=== PATIENT | male | born 1980 | race Hispanic/Latino ===

== ENCOUNTER 2021-11-07 08:46 | Emergency (ER) | payer OTHER ==
[2021-11-07] MEDS ORDERED: Fluorescein Opthalmic Strip ONE (09:04)
[2021-11-07] MEDS ORDERED: Piperacillin/Tazobactam 3.375 GM VIAL ONE (09:04)
[2021-11-07] MEDS ORDERED: Proparacaine 0.5% Opth 15 ML BOT ONE (09:05)
[2021-11-07] MEDS ORDERED: Ketorolac Tromethamine 30 MG/ML VIAL ONE (09:21)
== END 2021-11-07 10:40 ==
LOC: ERS 08:46 → EEVIPCON 08:46 → ERS 10:40
DX: S05.02XA Injury of conjunctiva and corneal abrasion without foreign body, left eye, initial encounter (principal); H11.32 Conjunctival hemorrhage, left eye; Z87.891 Personal history of nicotine dependence; X58.XXXA Exposure to other specified factors, initial encounter
CPT/HCPCS: 99283; J1885; J2543